=== PATIENT | female | born 1990 | race African-American/Black ===

== ENCOUNTER 2019-07-09 18:59 | Emergency (ER) | payer MEDICAID ==
[~2019-07-09] VITALS: Ht 162.6 cm; Wt 77.0 kg
[2019-07-09] MEDS ORDERED: ACETAMINOPHEN 325MG TABLET PO ONE (20:15)
[2019-07-09 21:30] VITALS: BP 122/76
== END 2019-07-09 21:51 | disposition home or self-care (01) ==
LOC: ER 19:09
DX: S16.1XXA Strain of muscle, fascia and tendon at neck level, initial encounter (principal); V49.49XA Driver injured in collision with other motor vehicles in traffic accident, initial encounter; Y93.89 Activity, other specified; Y92.89 Other specified places as the place of occurrence of the external cause; Y99.8 Other external cause status
CPT/HCPCS: 72040; 72070; 73610; 99284